=== PATIENT | female | born 1975 | race Caucasian/White ===

== ENCOUNTER 2017-12-12 11:58 | Inpatient (IN) | payer OTHER ==
[~2017-12-12] VITALS: Ht 152.4 cm; Wt 83.9 kg
[2017-12-12] MEDS ORDERED: PREN1TAB78 MT (13:19)
[2017-12-12] MEDS: LACTATED RINGERS 1,000 ML IV SCH ×3 (13:52→18:36)
[2017-12-12] MEDS ORDERED: DEXT 5%/LR + PITOCIN 20UNITS/L 1,000 ML IV SCH (15:54)
[2017-12-12] MEDS ORDERED: BUTORPHANOL TARTRATE 2 MG/ML VIAL IV PRN (16:00)
[2017-12-12] MEDS ORDERED: CARBOPROST TROMETHAMINE 250 MCG/ML AMPUL IM PRN (16:00)
[2017-12-12] MEDS ORDERED: METHYLERGONOVINE MALEATE 0.2 MG/ML IM PRN (16:00)
[2017-12-12] MEDS ORDERED: NALOXONE HCL 0.4 MG/ML 1ML VIAL IM PRN (16:00)
[2017-12-12 16:30] LABS: BASOPHILS % 0.3 % (0.0-2.0); EOSINOPHILS % 0.2 % (0.0-5.0); HEMATOCRIT. 34.4 % (36.0-48.0); HEMOGLOBIN. 11.7 g/dL (12.0-16.0); LYMPHOCYTES % 16.3 % (20.0-50.0); MEAN CORPUSCULAR HEMOGLOBIN 28.6 pg (28.0-32.0); MEAN CORPUSCULAR VOLUME 83.8 fL (81.0-99.0); MEAN PLATELET VOLUME 8.8 fl (7.4-10.4); MONOCYTES % 3.9 % (2.0-8.0); NEUTROPHILS % 79.3 % (40.0-76.0); PLATELET 178 x1000/uL (130-400); RED BLOOD CELL COUNT 4.11 mill/uL (4.2-5.4); RED CELL DISTRIBUTION WIDTH 14.8 % (11.6-14.6)
[2017-12-12 16:34] LABS: PARTIAL THROMBOPLASTIN TIME 24.7 sec (23.4-31.0); PROTHROMBIN TIME 9.9 sec (9.4-11.6)
[2017-12-12 17:17] LABS: HEPATITIS B SURFACE ANTIGEN NEGATIVE; RUBELLA IGG 169.4 IU/mL (4.99-10)
[2017-12-12] MEDS ORDERED: CITRIC ACID/SODIUM CITRATE SOLN 30ML UDC PO NR (17:30)
[2017-12-12] MEDS ORDERED: PHENYLEPHRINE HCL 10 MG/ML 1ML (IV VIAL) IV ONE (18:06)
[2017-12-12] MEDS ORDERED: OXYTOCIN 10 UNITS/ML 1ML ONE (18:06)
[2017-12-12] MEDS ORDERED: EPHEDRINE SULFATE 50MG/ML VIAL ONE (18:06)
[2017-12-12] MEDS ORDERED: FENTANYL CITRATE/PF 50MCG/ML 2ML VIAL ONE (18:06)
[2017-12-12] MEDS ORDERED: ONDANSETRON HCL 4MG/2ML VIAL ONE (18:06)
[2017-12-12] MEDS ORDERED: MORPHINE SULFATE/PF 1MG/ML 10ML AMP ONE (18:06)
[2017-12-12] MEDS ORDERED: GLYCOPYRROLATE 0.2 MG/ML 2ML VIAL ONE (18:06)
[2017-12-12] MEDS ORDERED: CEFAZOLIN 2000MG PREMIX 50 ML IV ONE (18:13)
[2017-12-12 18:21] LABS: *AMPHETAMINES SCREEN URINE NEGATIVE (NEGATIVE); *BARBITURATES SCREEN URINE NEGATIVE (NEGATIVE); *BENZODIAZEPINES SCREEN URINE NEGATIVE (NEGATIVE); *COCAINE SCREEN URINE NEGATIVE (NEGATIVE); CANNABINOID URINE SCREEN NEGATIVE (NEGATIVE); METHADONE URINE SCREEN NEGATIVE (NEGATIVE); OPIATES URINE SCREEN NEGATIVE (NEGATIVE); PHENCYCLIDINE URINE SCREEN NEGATIVE (NEGATIVE)
[2017-12-12 18:28] LABS: CLARITY URINE CLEAR (CLEAR); COLOR URINE YELLOW (YELLOW); KETONES URINE TRACE (NEGATIVE); LEUKOCYTE ESTERASE URINE TRACE (NEGATIVE); NITRITE URINE NEGATIVE (NEGATIVE); OCCULT BLOOD URINE 3+ (NEGATIVE); PROTEIN URINE TRACE (NEGATIVE); SPECIFIC GRAVITY URINE 1.018 (1.005-1.030); UROBILINOGEN URINE 0.2 E.U./dL (0.2-1.0)
[2017-12-13] MEDS: DEXT 5%/LR + PITOCIN 20UNITS/L 1,000 ML IV SCH ×2 (00:20→10:12)
[2017-12-13] MEDS ORDERED: LANOLIN OINT 0.25 GM TUBE TOP PRN (00:30)
[2017-12-13] MEDS ORDERED: HYDROCODONE/ACETAMINOPHEN 5/325MG TABLET PO PRN (00:30)
[2017-12-13] MEDS ORDERED: IBUPROFEN 400MG TABLET PO PRN (00:30)
[2017-12-13] MEDS ORDERED: ONDANSETRON HCL 4MG/2ML VIAL IV PRN (00:30)
[2017-12-13] MEDS ORDERED: DIPHENHYDRAMINE 25MG CAPSULE PO PRN (00:30)
[2017-12-13] MEDS ORDERED: RHO(D) IMMUNE GLOBULIN 300 MCG/SYR IM PRN (00:30)
[2017-12-13] MEDS ORDERED: BISACODYL 10MG SUPP PR PRN (00:30)
[2017-12-13] MEDS ORDERED: NALOXONE HCL 0.4 MG/ML 1ML VIAL IV PRN (00:45)
[2017-12-13] MEDS ORDERED: BUTORPHANOL TARTRATE 2 MG/ML VIAL IV PRN (00:45)
[2017-12-13] MEDS ORDERED: DIPHENHYDRAMINE 50MG/ML VIAL IV PRN (00:45)
[2017-12-13] MEDS ORDERED: KETOROLAC 30MG/ML VIAL IV PRN (00:45)
[2017-12-13 03:10] VITALS: BP 111/64
[2017-12-13 04:00] VITALS: BP 119/70
[2017-12-13] MEDS ORDERED: SIMETHICONE 80MG TABLET CHEW PO SCH (07:40)
[2017-12-13] MEDS: KETOROLAC 30MG/ML VIAL IV PRN ×3 (07:43→18:55)
[2017-12-13 07:57] VITALS: BP 120/74
[2017-12-13] MEDS ORDERED: TETANUS, DIPHTHERIA, PERTUSSIS VAC/PF 0.5ML (>7YR OLD) IM ONE (08:00)
[2017-12-13] MEDS: MAGNESIUM/ALUMINUM HYDROXIDE/SIMETHICONE 30ML UDC PO SCH ×4 (08:37→21:12)
[2017-12-13] MEDS: PRENATAL VIT/FE FUMARATE/FA TABLET PO SCH (08:38)
[2017-12-13] MEDS: SIMETHICONE 80MG TABLET CHEW PO SCH ×4 (08:38→21:12)
[2017-12-13 09:35] LABS: BASOPHILS % 0.1 % (0.0-2.0); HEMATOCRIT. 31.2 % (36.0-48.0); HEMOGLOBIN. 10.8 g/dL (12.0-16.0); LYMPHOCYTES % 11.6 % (20.0-50.0); MEAN CORPUSCULAR VOLUME 83.8 fL (81.0-99.0); MEAN PLATELET VOLUME 9.4 fl (7.4-10.4); NEUTROPHILS % 83.3 % (40.0-76.0); PLATELET 169 x1000/uL (130-400); RED BLOOD CELL COUNT 3.72 mill/uL (4.2-5.4); RED CELL DISTRIBUTION WIDTH 14.4 % (11.6-14.6)
[2017-12-13 15:59] VITALS: BP 141/80
[2017-12-13] MEDS: DOCUSATE SODIUM 100MG CAPSULE PO SCH (21:12)
[2017-12-13 22:00] VITALS: BP 120/77
[2017-12-14] MEDS: HYDROCODONE/ACETAMINOPHEN 5/325MG TABLET PO PRN ×3 (00:05→16:17)
[2017-12-14 06:00] VITALS: BP 122/83
[2017-12-14 07:34] VITALS: BP 114/64
[2017-12-14] MEDS: MAGNESIUM/ALUMINUM HYDROXIDE/SIMETHICONE 30ML UDC PO SCH ×4 (08:26→20:43)
[2017-12-14] MEDS: SIMETHICONE 80MG TABLET CHEW PO SCH ×4 (08:27→20:44)
[2017-12-14] MEDS: PRENATAL VIT/FE FUMARATE/FA TABLET PO SCH (08:27)
[2017-12-14] MEDS: FERROUS SULFATE 325MG TABLET PO SCH ×2 (13:44→17:23)
[2017-12-14 15:42] VITALS: BP 122/75
[2017-12-14] MEDS: DOCUSATE SODIUM 100MG CAPSULE PO SCH (20:43)
[2017-12-14 21:40] VITALS: BP 132/78
[2017-12-15] MEDS: HYDROCODONE/ACETAMINOPHEN 5/325MG TABLET PO PRN ×2 (01:08→05:55)
[2017-12-15 06:00] VITALS: BP 133/80
[2017-12-15 07:31] VITALS: BP 124/78
[2017-12-15] MEDS: MAGNESIUM/ALUMINUM HYDROXIDE/SIMETHICONE 30ML UDC PO SCH (08:41)
[2017-12-15] MEDS: FERROUS SULFATE 325MG TABLET PO SCH (08:41)
[2017-12-15] MEDS: SIMETHICONE 80MG TABLET CHEW PO SCH (08:41)
[2017-12-15] MEDS: PRENATAL VIT/FE FUMARATE/FA TABLET PO SCH (08:42)
== END 2017-12-15 11:45 | disposition home or self-care (01) | DRG 540 ==
LOC: L&D 11:58 → OBSVTOIN 11:58 → 7EST PP/OB 12-13 02:23
PROVIDERS: ADMIT Obstetrics & Gynecology; ATTEND Obstetrics & Gynecology
PROC: 10D00Z1 Extraction of Products of Conception, Low, Open Approach (ICD-10-PCS; principal; 2017-12-13)
PROC: 0UB70ZZ Excision of Bilateral Fallopian Tubes, Open Approach (ICD-10-PCS; 2017-12-13)
DX: O34.211 Maternal care for low transverse scar from previous cesarean delivery (principal); E66.9 Obesity, unspecified; O09.523 Supervision of elderly multigravida, third trimester; O99.214 Obesity complicating childbirth; Z37.0 Single live birth; Z3A.37 37 weeks gestation of pregnancy; Z68.36 Body mass index [BMI] 36.0-36.9, adult; Z30.2 Encounter for sterilization
CPT/HCPCS: 36415; 80305; 81003; 85025; 85610; 85730; 86592; 86703; 86762; 86850; 86900; 86920; 87340; 88302; 88307; 90715; G0378; J0595; J0690; J1885; J2274; J2370; J2405; J2590; J3010; J3490; J7120; A4315

== ENCOUNTER 2018-03-07 21:32 | Emergency (ER) | payer OTHER ==
[~2018-03-07] VITALS: Ht 152.4 cm; Wt 75.0 kg
[~2018-03-07 21:32] MED LIST: PREN1TAB78 MT
[2018-03-07] MEDS ORDERED: DIPHENHYDRAMINE 50MG CAPSULE PO ONE (22:15)
[2018-03-07] MEDS ORDERED: METHYLPREDNISOLONE SOD SUCC 125 MG/2 ML VIAL IV ONE (22:15)
[2018-03-07] MEDS ORDERED: FAMOTIDINE 20MG/2ML VIAL IV ONE (22:15)
[2018-03-08 00:25] VITALS: BP 118/85
== END 2018-03-08 00:26 | disposition home or self-care (01) ==
LOC: ER 21:32
DX: L50.9 Urticaria, unspecified (principal); R42 Dizziness and giddiness; R53.83 Other fatigue
CPT/HCPCS: 96374; 96375; 99284; J2930; J3490; Z7610; Q0163